=== PATIENT | female | born 1935 | race Caucasian/White ===

== ENCOUNTER 2019-01-24 12:27 | Inpatient (IN) | payer MEDICARE ==
[2019-01-24 13:14] LABS: Bacteria/HPF None Seen HPF (None Seen); Hyaline Casts/LPF 0-3 HYALINE CAST LPF (0-3 Hyaline); RBC/HPF 0-3 HPF (0-3); Squamous Epithelial 0-3 HPF (0-3); WBC/HPF 0-3 HPF (0-3)
[2019-01-24 13:15] LABS: Bilirubin Negative (Negative); Blood, Urine Negative (Negative); Clarity CLEAR (Clear); Glucose, Urine (Dipstick) Negative (Negative); Leukocyte Trace (Negative); Nitrite Negative (Negative); Protein, Urine (Dipstick) Negative (Neg-Trace); Specific Gravity, Urine 1.011 (1.002-1.036); Urobilinogen 0.2 mg/dL (0.2-1.0)
--- NOTE | 2019-01-24 14:24 | RAD ---
RADIOGRAPH LEFT WRIST 3 VIEWS: Date: 01/24/19 HISTORY: 84-year-old female with acute traumatic left wrist pain due to fall. FINDINGS: Severe DJD at first [facility] and at [facility]. No fracture identified. If there is snuffbox tenderness t hat suggests an occult scaphoid fracture, then the general recommendation is immobilization and follo w-up imaging in 5-10 days. Diffuse osteopenia. No subluxation or dislocation. IMPRESSION: 1. No acute fracture identified. 2. Severe osteoarthrosis of the first carpometacarpal joint and triscaphe region. POS: [facility]
--- NOTE | 2019-01-24 14:25 | RAD ---
3 VIEWS LEFT HAND: Date: 01/24/19 HISTORY: Left hand injury after mechanical fall. FINDINGS: There is diffuse osteopenia. There is osteoarthritis involving the interphalangeal joints, as well as metacarpal joints of the first through third digits with prominent osteophytes and subchondral scler osis involving the metacarpophalangeal joint of the thumb. Osteoarthritis also seen involving the car pometacarpal joint and greater multangular joint. No fracture or dislocation is seen. No other osseou s abnormality. IMPRESSION: 1. Osteoarthritis and osteopenia left hand. 2. No acute osseous abnormality. POS: [facility]
[2019-01-24] MEDS ORDERED: Ondansetron PF 4 MG/2 ML Vial IVP PRN ×2 (14:26→16:00)
[2019-01-24] MEDS ORDERED: Ondansetron ODT 4 MG TAB PO PRN (14:26)
[2019-01-24] MEDS ORDERED: Bisacodyl 10 MG SUPP PR PRN (14:26)
[2019-01-24] MEDS ORDERED: Cepastat Lozenges 1 LOZ PO PRN (14:26)
[2019-01-24] MEDS ORDERED: Acetaminophen 325 MG TAB PO PRN (14:26)
[2019-01-24] MEDS ORDERED: Fentanyl 100 MCG/2 ML VIAL SLOW IVP PRN (14:26)
[2019-01-24] MEDS ORDERED: traMADol HCl 50 MG TAB PO PRN ×4 (14:26→16:00)
[2019-01-24] MEDS ORDERED: Milk Of Magnesia 30 ML UDCUP PO PRN (14:26)
[2019-01-24] MEDS ORDERED: Fleet Enema 133 ML BOT PR PRN (14:26)
[2019-01-24] MEDS ORDERED: Lidocaine 1.5% w/Epi 1:200K 30 ML VIAL (Epid Use) ONE (14:48)
[2019-01-24] MEDS ORDERED: Fentanyl 100 MCG/2 ML VIAL ONE ×3 (14:48→15:34)
[2019-01-24] MEDS ORDERED: Midazolam HCl 2 mg/2 ml Vial ONE (14:48)
[2019-01-24] MEDS ORDERED: Ketorolac Tromethamine 30 MG/ML VIAL ONE (14:51)
[2019-01-24] MEDS ORDERED: Metoclopramide HCl 10 MG/2 ML VIAL ONE (14:51)
[2019-01-24] MEDS ORDERED: PROPOFOL 200 MG/20 ML VIAL ONE (14:51)
[2019-01-24] MEDS ORDERED: Ondansetron PF 4 MG/2 ML Vial ONE (14:51)
[2019-01-24] MEDS ORDERED: ePHEDrine 50 MG/ML VIAL ONE (14:51)
[2019-01-24] MEDS ORDERED: Glycopyrrolate 0.2 MG/ML 5 ML SYRINGE ONE (14:51)
[2019-01-24] MEDS ORDERED: Rocuronium Bromide 10 MG/ML (10ML VIAL) ONE (14:51)
[2019-01-24] MEDS ORDERED: PHENYLEPHRINE-NS 100 MCG/ML 10 ML SYRINGE ONE (14:51)
[2019-01-24] MEDS ORDERED: Ketamine 50 MG/ML (10ML VIAL) ONE (15:19)
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
[2019-01-24] MEDS ORDERED: Naloxone HCl 0.4 mg/ml Vial IVP PRN (16:00)
[2019-01-24] MEDS ORDERED: diphenhydrAMINE 50 MG/ML VIAL IM PRN (16:00)
[2019-01-24] MEDS ORDERED: Promethazine HCl 25 MG SUPP PR PRN (16:00)
[2019-01-24] MEDS ORDERED: Hydrocerin (Eucerin) Cream 120 gm Jar TOP PRN (16:00)
[2019-01-24] MEDS ORDERED: HYDROcodone/Acetaminophen 5/325 mg Tablet PO PRN ×2 (16:00)
[2019-01-24] MEDS ORDERED: Bupivacaine 0.25% 10 ML VIAL EPIDURAL PRN (16:00)
[2019-01-24] MEDS ORDERED: Promethazine HCl 25 MG/ML VIAL IM PRN (16:00)
[2019-01-24] MEDS ORDERED: Ketorolac Tromethamine 30 MG/ML VIAL IVP PRN (16:00)
[2019-01-24] MEDS ORDERED: Zolpidem Tartrate 5 MG TAB PO PRN (16:00)
[2019-01-24] MEDS ORDERED: diphenhydrAMINE 50 MG/ML VIAL IVP PRN (16:00)
[2019-01-24] MEDS ORDERED: diphenhydrAMINE 25 MG CAP PO PRN (16:00)
[2019-01-24] MEDS ORDERED: Naloxone HCl 0.4 mg/ml Vial IV PRN (16:00)
[2019-01-24] MEDS ORDERED: Ropivacaine 0.2% HCl/PF 20 ML ONE (16:12)
[2019-01-24] MEDS ORDERED: Fentanyl 5 mcg/Bup 0.075% Cadd 100 ML EPIDURAL ONE (17:41)
[2019-01-24] MEDS ORDERED: Ondansetron HCl/PF 4 MG/2 ML Vial IVP PRN (17:42)
[2019-01-24] MEDS ORDERED: Tranexamic Acid 1,000 MG in Sodium Chloride 0.9% 100 ML IVPB SCH (17:45)
--- NOTE | 2019-01-24 18:12 | OP ---
DATE OF PROCEDURE: 01/24/2019 PREOPERATIVE DIAGNOSIS: Left hip femoral neck fracture. POSTOPERATIVE DIAGNOSIS: Left hip femoral neck fracture. OPERATIVE PROCEDURE: Left hip press-fit monopolar hemiarthroplasty. SURGEON: Brandon Dietrich MD. TANK CHARGER: Phillip Kay PA-C. ANESTHESIA: General via endotracheal tube augmented with indwelling epidural. COMPONENTS USED: [employer] Accolade press-fit hip stem 4.5 with a 49 mm outer diameter Unitrax monopolar -5 neck length, hemispherical femoral head. ESTIMATED BLOOD LOSS: 150. FINDINGS: Left femoral neck fracture as described on plain radiograph. DRAINS: None. SPECIMENS: None. COMPLICATIONS: None. COUNTS: Correct. INDICATION FOR SURGERY: Hillary is an 84-year-old white female, who fell earlier this morning while walking with her dog, landing on her left hip. She had immediate onset of pain. She was transferred to [facility] via EMS. Plain radiographs demonstrated displaced varus angulated femoral neck fracture. She has elected to proceed with left hip hemiarthroplasty as definitive treatment of this problem. PROCEDURE IN DETAIL: After informed consent was obtained in the preoperative holding area, the patient received preoperative antibiotics, was taken to the operative suite, and positioned appropriately on the operating table in the lateral decubitus position. The hip was then prepped and draped in usual sterile fashion. Prior to incision, a time-out was called and all members of the surgical team agreed upon site, surgeon, and patient. Once this was completed, an incision was made using a lateral approach 2 fingerbreadths above the tip of the trochanter and 2 fingerbreadths below the flare by palpation. The subcutaneous layer was opened with Bovie electrocautery and the IT band was encountered. This was identified and a camargo elevator was used to remove the adipose tissue from it. Once it was cleaned, Bovie and scissors were used to incise the IT band, exposing the lateral aspect of the trochanter and the abductor muscles. The abductor muscles were then reflected using Bovie electrocautery. The gluteus medius was also then reflected anteriorly and Charnley retractor was placed to hold this open. An anterior capsulotomy was performed, identifying the fracture hematoma at that time. Once the capsulotomy was completed, the neck cut was then made using the oscillating saw. Once the napkin ring of bone was removed using rongeur Leksell, the femoral head was then removed using a corkscrew combination with Hohmann retractors. The appropriate size was then chosen and this was trialed and attention was then turned to femoral preparation. The cookie cutter was used, followed by intramedullary reamers and sequential broaching up to the appropriate size of press-fit stem. Once this was completed, we had good calcar fit and 1 fingerbreadth above the top of the lesser trochanter. We then malleted in the appropriate sized femoral prosthesis using a good strong press fit. Happy with our fit, we went ahead and trialed up to the appropriate neck length using shuck, internal and external rotation, and other maneuvers to identify good solid hip fit and finish, and without any dislocation at greater than 50-60 degrees of internal rotation with the hip flexed to 90 degrees. Shuck was negative as well. We then selected the appropriate neck length and endoprosthesis malleted firmly into the Valladares taper. A reduction maneuver was then performed and we copiously irrigated the entire wound with normal saline. Again, we ran the hip through hip internal and external rotation flexed at 90 degrees and shuck being negative. After copious irrigation of 3 L of normal saline, the abductors were then reapproximated and stitched down using #2 Vicryl. The IT band was approximated with #2 Vicryl and closed with a running #2 Quill polypropylene stitch. Subcutaneous layer was closed with a running 0 Quill stitch and skin closure was accomplished with 3-0 Monocryl Quill stitch and Dermabond skin cement. All counts were correct. A sterile dressing was applied and the procedure was terminated without any complications. The airway was removed in the operative suite and the patient was taken to recovery room in stable condition. Job ID: [id number]
[2019-01-24] MEDS ORDERED: D5 1/2 NS w/20 mEq KCL 1,000 ML ONE (18:32)
[2019-01-24] MEDS ORDERED: hydrALAZINE 20 MG/ML VIAL SLOW IVP PRN (18:36)
[2019-01-24] MEDS ORDERED: Morphine 4 MG/ML VIAL SLOW IVP PRN (18:36)
[2019-01-24] MEDS ORDERED: Dextrose 50% Abboject 50 ML SYRINGE SLOW IVP PRN (18:36)
[2019-01-24] MEDS ORDERED: Dextrose 5% in Water 1,000 ML IV PRN (18:36)
[2019-01-24] MEDS ORDERED: HumaLOG 300 UNITS/3 ML VIAL SC PRN (18:36)
[2019-01-24] MEDS ORDERED: Acetaminophen 1,000 MG in Premix Bag 1 BAG IVPB SCH ×2 (18:45→23:59)
--- NOTE | 2019-01-24 19:37 | RAD ---
TWO VIEWS LEFT HIP 01/24/19 INDICATION: Postop. COMPARISON: None. FINDINGS: There is a left hip endoprosthesis that projects in the expected position. there is scattered periart icular soft tissue gas consistent with the patient's recent postop state. No definite radiographic e vidence of complications present. there are healed fracture deformities involving the inferior pubic rami bilaterally. IMPRESSION: Left hip endoprosthesis. POS: [facility]
[2019-01-24] MEDS: D5 1/2 NS w/20 mEq KCL 1,000 ML IV SCH (21:13)
[2019-01-24] MEDS: Ibuprofen 800 MG TAB PO SCH (21:15)
[2019-01-24] MEDS: Ferrous Gluconate 324 MG TAB PO SCH (21:15)
[2019-01-24] MEDS: Famotidine 20 MG TAB PO SCH (21:15)
[2019-01-24] MEDS: Senokot S 8.6-50 MG TAB PO SCH (21:15)
[2019-01-24] MEDS: CEFAZOLIN 2 GM in Premix Bag 1 BAG IVPB SCH (21:16)
[2019-01-24] MEDS: Acetaminophen 1,000 MG in Premix Bag 1 BAG IVPB SCH (21:16)
--- NOTE | 2019-01-24 21:18 | HP ---
HISTORY OF PRESENT ILLNESS: This is a very pleasant 84-year-old woman who fell at home today while walking her dog. She denies any loss of consciousness, was in good health at the time of the fall. PAST MEDICAL HISTORY: Positive for hypertension. ALLERGIES: SULFA AND TETRACYCLINE. SOCIAL HISTORY: Does not smoke or drink. She lives alone. She does have family fairly nearby. She is an independent ambulator. Does not use a cane or crutch. PAST FAMILY MEDICAL HISTORY: Positive for hypertension and high cholesterol. PHYSICAL EXAMINATION: GENERAL: Shows a pleasant woman, who is in no distress. HEENT: Normocephalic and atraumatic. LUNGS: Clear. HEART: Regular. EXTREMITIES: She has little bit of tenderness over the left wrist. She has tenderness over the left hip. External rotation deformity of the left hip with shortening. She has intact motor and sensory function distally. RADIOGRAPH DATA: Show osteoarthritis of the left carpus and a displaced femoral neck fracture on the left hip. PLAN: Plan is for hemiarthroplasty. She understands the risk of infection, blood clot, transfusion, , dislocation. She elected to proceed with surgery. Job ID: [id number]
[2019-01-25 00:16] VITALS: BMI 23.8
[2019-01-25] MEDS: Acetaminophen 1,000 MG in Premix Bag 1 BAG IVPB SCH ×3 (02:55→14:42)
[2019-01-25] MEDS: D5 1/2 NS w/20 mEq KCL 1,000 ML IV SCH (04:56)
[2019-01-25] MEDS: Ibuprofen 800 MG TAB PO SCH ×3 (05:53→21:07)
[2019-01-25] MEDS: CEFAZOLIN 2 GM in Premix Bag 1 BAG IVPB SCH (05:53)
[2019-01-25 06:12] LABS: Hemoglobin 11.8 g/dL (12.0-16.0); Mean Corpuscular HGB CONC 31.3 g/dL (32.0-36.0); Mean Corpuscular Hemoglobin 27.9 pg (27.0-31.0); Mean Corpuscular Volume 89.2 fL (78.0-98.0); Mean Platelet Volume 8.5 fL (7.4-10.4); Platelet Count 178 thou/uL (130-400); RBC Distribution Width 13.8 % (11.5-14.5); Red Blood Cell (RBC) Count 4.23 mill/uL (4.20-5.40); White Blood Cell (WBC) Count 8.5 thou/uL (4.8-10.8)
[2019-01-25 06:32] LABS: Phosphorus 3.1 mg/dL (2.3-4.7)
[2019-01-25 06:35] LABS: Anion Gap 10 mmol/L (10-20); BUN (Urea Nitrogen) 12 mg/dL (9.8-20.1); Calc. Creatinine Clearance 67 mL/min (70-130); Calcium 8.2 mg/dL (7.8-10.44); Carbon Dioxide 24 mmol/L (23-31); Chloride 102 mmol/L (98-107); Estimated GFR-MDRD Greater than 90; Glucose 106 mg/dL (83-110); Magnesium 1.6 mg/dL (1.6-2.6); Potassium 4.3 mmol/L (3.5-5.1); Sodium 132 mmol/L (136-145)
--- NOTE | 2019-01-25 08:20 | PRG ---
DATE OF SERVICE: 01/25/2019 SUBJECTIVE: Hillary is an 84-year-old white female, who is postop day 1 from left hip monopolar hemiarthroplasty. She is doing very well. She has no complaints of pain. She slept very well last night. OBJECTIVE DATA: VITAL SIGNS: Temperature 98.3; pulse 85; respiratory rate 16, unlabored; and blood pressure is 114/66 and unlabored. GENERAL: She is alert and oriented to person, place, time, and situation. Grossly nonfocal. MUSCULOSKELETAL: Visual inspection of the left hip incision demonstrates no strike through, and there is no shortening or malrotation. LABORATORY DATA: Hemoglobin and hematocrit are 11.8 and 37.7 respectively. IMPRESSION: An 84-year-old female, postop day 1, left hip hemiarthroplasty secondary to femoral neck fracture. PLAN: Continue current care. Consult Physical Therapy, out of bed today, weightbearing as tolerated. Recheck tomorrow. Need to discuss placement versus discharge to home. Job ID: [id number]
[2019-01-25] MEDS: Senokot S 8.6-50 MG TAB PO SCH ×2 (08:28→20:41)
[2019-01-25] MEDS: Ferrous Gluconate 324 MG TAB PO SCH ×2 (08:28→20:41)
[2019-01-25] MEDS: Multivitamin W/ Minerals 1 TAB PO SCH (08:28)
[2019-01-25] MEDS: Famotidine 20 MG TAB PO SCH ×2 (08:28→20:41)
[2019-01-25] MEDS: Polyethylene Glycol 3350 17 GM Packet PO SCH (08:29)
[2019-01-25] MEDS ORDERED: Enoxaparin Sodium 30 MG/0.3 ML SYRINGE SC SCH (09:00)
[2019-01-25] MEDS: Fentanyl 5 mcg/Bup 0.075% Cadd 100 ML EPIDURAL SCH (09:30)
--- NOTE | 2019-01-25 15:53 | PRG ---
DATE OF SERVICE: 01/25/2019 SUBJECTIVE: This is an 84-year-old female, status post mechanical fall with left femoral neck fracture. The patient is postop day #1 left hip monopolar hemiarthroplasty. The patient had no overnight events. The patient continues to have good pain control with epidural. The patient did participate with Physical Therapy. The patient with good appetite. No complaints of nausea or vomiting. OBJECTIVE: VITAL SIGNS: Blood pressure 122/69, temperature 98.2, pulse 82, respirations 16, and 94% on room air SpO2. GENERAL: The patient is awake and alert, in no distress. RESPIRATORY: Respirations even and nonlabored, no distress. CARDIOVASCULAR: Regular rate and rhythm. No pedal edema. ABDOMEN: Soft, nontender, and nondistended. EXTREMITIES: Moves all extremities. 2+ distal pulses x4. Left hip dressing clean, dry, and intact. NEUROVASCULAR: No focal deficits. LABORATORY DATA: WBC 8.5, RBC 4.23, hemoglobin 11.8, hematocrit 37.7, platelets 178. Sodium 132, potassium 4.3, chloride 102, CO2 of 24, BUN 12, creatinine 0.62, estimated GFR 90, glucose 106, calcium 8.2, phosphorus 3.1, and magnesium 1.6. IMPRESSION: 1. Ground level fall, status post left femoral neck fracture. 2. Postop day #1, left hip hemiarthroplasty. 3. Acute traumatic pain. 4. History of hypertension, gastroesophageal reflux disease, diabetes, and osteoporosis. PLAN: Continue epidural for pain. We will stop IV fluids. Plan for epidural to discontinue tomorrow. We will start the patient on p.o. pain regimen. Continue physical therapy and occupational therapy. Pending placement to inpatient rehab in [place]. The patient was examined with Dr. Velazquez during morning rounds. Job ID: [id number]
[2019-01-25] MEDS: Calcium Carbonate + Vit D 1 TAB PO SCH (20:41)
[2019-01-25] MEDS: Carvedilol 6.25 MG TAB PO SCH (20:41)
[2019-01-26] MEDS ORDERED: Furosemide 40 MG/4 ML VIAL ONE (03:32)
[2019-01-26] MEDS: Fentanyl 5 mcg/Bup 0.075% Cadd 100 ML EPIDURAL SCH (03:35)
[2019-01-26] MEDS: Ibuprofen 800 MG TAB PO SCH ×3 (06:50→21:23)
[2019-01-26 07:00] LABS: Hemoglobin 11.9 g/dL (12.0-16.0); Mean Corpuscular HGB CONC 30.9 g/dL (32.0-36.0); Mean Corpuscular Hemoglobin 27.9 pg (27.0-31.0); Mean Corpuscular Volume 90.1 fL (78.0-98.0); Mean Platelet Volume 8.6 fL (7.4-10.4); Platelet Count 161 thou/uL (130-400); RBC Distribution Width 13.8 % (11.5-14.5); Red Blood Cell (RBC) Count 4.28 mill/uL (4.20-5.40); White Blood Cell (WBC) Count 10.8 thou/uL (4.8-10.8)
[2019-01-26 07:14] LABS: Anion Gap 9 mmol/L (10-20); BUN (Urea Nitrogen) 9 mg/dL (9.8-20.1); Calc. Creatinine Clearance 71 mL/min (70-130); Calcium 8.6 mg/dL (7.8-10.44); Carbon Dioxide 23 mmol/L (23-31); Chloride 100 mmol/L (98-107); Estimated GFR-MDRD Greater than 90; Glucose 117 mg/dL (83-110); Potassium 4.1 mmol/L (3.5-5.1); Sodium 128 mmol/L (136-145)
[2019-01-26] MEDS: Polyethylene Glycol 3350 17 GM Packet PO SCH (08:48)
[2019-01-26] MEDS: Famotidine 20 MG TAB PO SCH ×2 (08:48→20:29)
[2019-01-26] MEDS: Calcium Carbonate + Vit D 1 TAB PO SCH ×2 (08:48→20:29)
[2019-01-26] MEDS: Senokot S 8.6-50 MG TAB PO SCH ×2 (08:48→20:28)
[2019-01-26] MEDS: Carvedilol 6.25 MG TAB PO SCH ×2 (08:49→20:29)
[2019-01-26] MEDS: Multivitamin W/ Minerals 1 TAB PO SCH (08:49)
[2019-01-26] MEDS: Amlodipine 10 MG TAB PO SCH (08:49)
[2019-01-26] MEDS: Ferrous Gluconate 324 MG TAB PO SCH ×2 (08:49→20:29)
[2019-01-26] MEDS ORDERED: Hydrochlorothiazide 25 MG TAB PO SCH (09:00)
--- NOTE | 2019-01-26 12:07 | PRG ---
DATE OF SERVICE: 01/26/2019 SUBJECTIVE: Hillary is postop day 2 from left hip femoral neck fracture treated with press-fit monopolar hemiarthroplasty. She is doing relatively well. She has been up walking distances greater than 120 to 130 feet. She is doing very well. She is quite spry. OBJECTIVE: GENERAL: She is alert, oriented to person, place, time, situation, grossly nonfocal and appropriate and spry with examiner. VITAL SIGNS: Temperature 99.2; pulse 97; respiratory rate 16, unlabored; and blood pressure 160/76. MUSCULOSKELETAL: She is sitting up, in-conversive. Her left hip incision is clean. No strike through. She is neurovascularly intact in both lower extremities. There is no malrotation or shortening of the extremity. IMPRESSION: An 84-year-old female, postop day 2, left hip hemiarthroplasty, doing very well. Hemoglobin and hematocrit 11 and 38. PLAN: Continue current care. She will probably transfer to [facility]. Job ID: [id number]
[2019-01-26] MEDS ORDERED: traMADol HCl 50 MG TAB PO SCH (15:45)
--- NOTE | 2019-01-26 16:20 | PRG ---
DATE OF SERVICE: 01/26/2019 SUBJECTIVE: This is an 84-year-old woman status post mechanical fall with left femoral neck fracture. She is postop day #2, left hip monopolar hemiarthroplasty. The patient had no overnight events. The patient continues to have good pain control with epidural in place. The patient has no complaints of nausea or vomiting and has a good appetite. The patient did walk 150 feet today with physical therapy. The patient did also report having a bowel movement this morning. The patient is awake, alert, sitting up in the chair after physical therapy. Reports moderate pain with walking. OBJECTIVE: VITAL SIGNS: Blood pressure 160/76, SpO2 of 94% on room air, temperature 99.2, pulse 97, respirations 16. GENERAL: The patient is awake, alert, sitting up in the chair, in no distress. RESPIRATORY: Respirations even and nonlabored, no distress. CARDIOVASCULAR: Regular rate and rhythm, no pedal edema. ABDOMEN: Soft, nontender, nondistended. EXTREMITIES: Moves all extremities. 2+ distal pulses x4. Left hip dressing clean, dry, and intact. NEUROVASCULAR: No focal deficits. LABORATORY DATA: WBC 10.8, RBC 4.28, hemoglobin 11.9, hematocrit 38.5, platelets 161. Sodium 128, potassium 4.1, BUN 9, creatinine 0.58, estimated GFR greater than 90, glucose 117, calcium 8.6. DIAGNOSTICS: There is no diagnostics to review today. IMPRESSION: 1. Ground level fall status post left femoral neck fracture. 2. Postoperative day #2 left hip hemiarthroplasty. 3. Acute traumatic pain. 4. Hyponatremia. 5. History of hypertension, gastroesophageal reflux disease, diabetes mellitus, osteoporosis. PLAN: We will place the patient on a p.o. scheduled pain regimen as the patient's epidural has been discontinued this morning. We will discontinue the patient's Golbderg catheter. We will continue physical and occupational therapy. We will place the patient on Ensure lively with daily meals. We will place the patient on a free water restriction for her hyponatremia. The patient has pending placement to inpatient rehab in [place]. The patient was examined with Dr. Velazquez during morning rounds. Job ID: [id number]
[2019-01-26] MEDS: traMADol HCl 50 MG TAB PO SCH ×2 (17:48→23:02)
[2019-01-26] MEDS: metFORMIN 500 MG TAB PO SCH (17:49)
[2019-01-26] MEDS: Vit A,C & E/Lutein/Minerals Tablet PO SCH (20:28)
[2019-01-26] MEDS: Acetaminophen 325 MG TAB PO SCH (20:29)
[2019-01-26] MEDS: Enoxaparin Sodium 30 MG/0.3 ML SYRINGE SC SCH (20:30)
[2019-01-26] MEDS ORDERED: Amoxicillin/Potassium Clav 875 MG TAB PO SCH (21:00)
[2019-01-27] MEDS: Acetaminophen 325 MG TAB PO SCH ×4 (02:57→20:23)
[2019-01-27 05:00] LABS: Hemoglobin 10.7 g/dL (12.0-16.0); Mean Corpuscular Hemoglobin 27.6 pg (27.0-31.0); Mean Corpuscular Volume 89.3 fL (78.0-98.0); Mean Platelet Volume 9.3 fL (7.4-10.4); Platelet Count 167 thou/uL (130-400); RBC Distribution Width 13.6 % (11.5-14.5); Red Blood Cell (RBC) Count 3.89 mill/uL (4.20-5.40); White Blood Cell (WBC) Count 8.8 thou/uL (4.8-10.8)
[2019-01-27 05:06] LABS: Anion Gap 8 mmol/L (10-20); BUN (Urea Nitrogen) 13 mg/dL (9.8-20.1); Calc. Creatinine Clearance 71 mL/min (70-130); Calcium 8.7 mg/dL (7.8-10.44); Carbon Dioxide 28 mmol/L (23-31); Chloride 99 mmol/L (98-107); Estimated GFR-MDRD Greater than 90; Glucose 95 mg/dL (83-110); Potassium 3.9 mmol/L (3.5-5.1); Sodium 131 mmol/L (136-145)
[2019-01-27] MEDS: traMADol HCl 50 MG TAB PO SCH ×3 (05:19→17:42)
[2019-01-27] MEDS: Ibuprofen 800 MG TAB PO SCH ×3 (05:20→21:16)
[2019-01-27] MEDS: Calcium Carbonate + Vit D 1 TAB PO SCH ×2 (08:42→20:23)
[2019-01-27] MEDS: Vit A,C & E/Lutein/Minerals Tablet PO SCH ×2 (08:42→20:23)
[2019-01-27] MEDS: Carvedilol 6.25 MG TAB PO SCH ×2 (08:42→20:23)
[2019-01-27] MEDS: Amlodipine 10 MG TAB PO SCH (08:42)
[2019-01-27] MEDS: Polyethylene Glycol 3350 17 GM Packet PO SCH (08:43)
[2019-01-27] MEDS: Famotidine 20 MG TAB PO SCH ×2 (08:43→20:23)
[2019-01-27] MEDS: Senokot S 8.6-50 MG TAB PO SCH ×2 (08:43→20:22)
[2019-01-27] MEDS: Ferrous Gluconate 324 MG TAB PO SCH ×2 (08:43→20:23)
[2019-01-27] MEDS: metFORMIN 500 MG TAB PO SCH ×2 (08:43→17:42)
[2019-01-27] MEDS: Multivitamin W/ Minerals 1 TAB PO SCH (08:43)
--- NOTE | 2019-01-27 15:58 | PRG ---
DATE OF SERVICE: 01/27/2019 SUBJECTIVE: This is an 84-year-old woman status post mechanical fall with left femoral neck fracture. She is postop day #3, left hip monopolar hemiarthroplasty. The patient had no overnight events. The patient continues to have good pain control. The patient denies any nausea and vomiting, and continues to have a good appetite. The patient continues to walk with Physical therapy. OBJECTIVE: VITAL SIGNS: Temperature 98.1, pulse 86, respirations 14, SpO2 of 94% on room air, blood pressure 166/82. GENERAL: The patient is awake and alert, sitting up in the chair. RESPIRATORY: Respirations even, unlabored and no distress. CARDIOVASCULAR: Regular rate and rhythm. No pedal edema. ABDOMEN: Soft, nontender, nondistended. EXTREMITIES: Moves all extremities. 2+ distal pulses. Left hip dressing is clean, dry, and intact. NEUROVASCULAR: There are no focal deficits. LABORATORY DATA: WBC 8.8, RBC 3.89, hemoglobin 10.7, hematocrit 34.4, platelets 167. Sodium 131, BUN 13, creatinine 0.58. Estimated GFR greater than 90, glucose 95, serum osmolality 275, calcium 8.7. DIAGNOSTICS: There are no diagnostics to review today. IMPRESSION: 1. Status post ground level fall with left femoral neck fracture. 2. Postop day #2, left hip hemiarthroplasty. 3. Acute traumatic pain. 4. Hyponatremia. 5. History of hypertension, gastroesophageal reflux disease, diabetes mellitus, osteoporosis. PLAN: We will continue the patient's pain regimen. We will discontinue the patient's hydrochlorothiazide for a couple of days as the patient continues to be hyponatremic. We will continue Physical and Occupational therapy. We will also continue the patient's Ensure lively with daily meals. The patient is pending placement for skilled/rehab in [place]. The patient was examined with Dr. Waldron this morning during morning rounds. Job ID: [id number]
[2019-01-27] MEDS: Enoxaparin Sodium 30 MG/0.3 ML SYRINGE SC SCH (20:22)
[2019-01-28] MEDS: traMADol HCl 50 MG TAB PO SCH ×2 (01:40→05:06)
[2019-01-28] MEDS: Acetaminophen 325 MG TAB PO SCH ×2 (03:12→09:28)
[2019-01-28] MEDS: Ibuprofen 800 MG TAB PO SCH (05:06)
[2019-01-28 08:06] LABS: #Eosinphils 0.2 thou/uL (0.0-0.7); #Lymphocytes 1.3 thou/uL (1.20-3.40); #Monocytes 0.9 thou/uL (0.11-0.59); #Neutrophils 4.4 thou/uL (1.40-6.50); %Basophils 0.5 % (0.0-1.0); %Eosinophils 2.8 % (0.0-10.0); %Lymphocytes 18.9 % (21.0-51.0); %Monocytes 12.6 % (0.0-10.0); %Neutrophils 65.2 % (42.0-75.0); Hemoglobin 10.9 g/dL (12.0-16.0); Mean Corpuscular HGB CONC 31.6 g/dL (32.0-36.0); Mean Corpuscular Hemoglobin 27.5 pg (27.0-31.0); Mean Corpuscular Volume 86.9 fL (78.0-98.0); Mean Platelet Volume 8.2 fL (7.4-10.4); Platelet Count 240 thou/uL (130-400); RBC Distribution Width 13.6 % (11.5-14.5); Red Blood Cell (RBC) Count 3.95 mill/uL (4.20-5.40); White Blood Cell (WBC) Count 6.8 thou/uL (4.8-10.8)
[2019-01-28 08:22] LABS: Anion Gap 8 mmol/L (10-20); BUN (Urea Nitrogen) 14 mg/dL (9.8-20.1); Calc. Creatinine Clearance 71 mL/min (70-130); Carbon Dioxide 29 mmol/L (23-31); Chloride 99 mmol/L (98-107); Estimated GFR-MDRD Greater than 90; Glucose 91 mg/dL (83-110); Magnesium 1.6 mg/dL (1.6-2.6); Phosphorus 2.4 mg/dL (2.3-4.7); Potassium 4.2 mmol/L (3.5-5.1); Sodium 132 mmol/L (136-145)
[2019-01-28] MEDS ORDERED: Magnesium 2 GM/50 ML 2 GM in Premix Bag 1 BAG IVPB SCH (08:30)
[2019-01-28] MEDS: Famotidine 20 MG TAB PO SCH (09:25)
[2019-01-28] MEDS: Polyethylene Glycol 3350 17 GM Packet PO SCH (09:25)
[2019-01-28] MEDS: Amlodipine 10 MG TAB PO SCH (09:25)
[2019-01-28] MEDS: Carvedilol 6.25 MG TAB PO SCH (09:25)
[2019-01-28] MEDS: Calcium Carbonate + Vit D 1 TAB PO SCH (09:25)
[2019-01-28] MEDS: Multivitamin W/ Minerals 1 TAB PO SCH (09:26)
[2019-01-28] MEDS: Ferrous Gluconate 324 MG TAB PO SCH (09:26)
[2019-01-28] MEDS: Vit A,C & E/Lutein/Minerals Tablet PO SCH (09:26)
[2019-01-28] MEDS: Senokot S 8.6-50 MG TAB PO SCH (09:26)
[2019-01-28] MEDS: metFORMIN 500 MG TAB PO SCH (09:26)
[2019-01-28 11:10] VITALS: BP 118/68; TEMP 98.7
--- NOTE | 2019-01-29 04:47 | DIS ---
DATE OF ADMISSION: 01/24/2019 DATE OF DISCHARGE: 01/28/2019 ADMISSION DIAGNOSES: Mechanical fall from standing and left femoral neck fracture. DISCHARGE DIAGNOSES: Mechanical fall from standing and left femoral neck fracture. CONSULTING PHYSICIAN: Dr. Dietrich. PROCEDURE: Left hip monopolar hemiarthroplasty on January [address] Dietrich. HOSPITAL COURSE: Ms. Almazan is an 84-year-old female, who presented to the emergency department after mechanical fall from standing. She reported she was walking her dog when her dog suddenly jerked her forward. She let go of the leash and fell onto her left side, injuring her left leg and wrist. On evaluation in the emergency department, she was found to have a left femoral neck fracture, left wrist showed no radiographic signs of injury. On the , the patient was taken to the OR by Dr. Dietrich and received a left hip monopolar hemiarthroplasty. Postoperatively, the patient worked with Physical and Occupational Therapy. She was started on all of her home medications as they were indicated. At time of discharge, she was tolerating a regular diet, pain was well controlled, she was working on physical therapy, she was voiding but had not had a bowel movement. DISCHARGE DISPOSITION: Swing bed at a residential facility. DISCHARGE CONDITION: Satisfactory. PHYSICAL EXAMINATION: GENERAL: An elderly female, sitting up in bed with no signs of acute distress. PULMONARY: Equal chest rise and fall. Equal breath sounds bilaterally. No significant pulmonary distress. CARDIAC: Regular rate and rhythm. No murmurs, gallops, or rubs. GASTROINTESTINAL: Soft, nontender, nondistended. EXTREMITIES: No significant swelling noted. 2+ pulses in all extremities. Gross motor and sensation intact in all extremities. DISCHARGE INSTRUCTIONS: The patient was discharged to a swing bed at a residential facility. Activity as tolerated with hip precautions. She can have regular diet with no restrictions. She is to work with PT and OT. Use an incentive spirometer and walker. DISCHARGE MEDICATIONS: Include: 1. Tylenol. 2. Amlodipine. 3. Calcium with D. 4. Carvedilol. 5. Lovenox. 6. Ferrous gluconate. 7. Ibuprofen. 8. Metformin. 9. Eucerin. 10. Multivitamins. 11. MiraLAX. 12. Senokot. 13. Tramadol. FOLLOWUP: The patient is to follow up with Dr. Dietrich in 2 to 3 weeks. This is merely a summary of the patient's hospitalization. For full details, please see her medical record in its entirety. Job ID: [id number]
== END 2019-01-28 13:51 | DRG 470 ==
LOC: ERS 12:27 → SDC/OP 14:54 → SJJU 18:43
PROVIDERS: ADMIT Surgery; ATTEND Surgery
PROC: 0SRS0JA Replacement of Left Hip Joint, Femoral Surface with Synthetic Substitute, Uncemented, Open Approach (ICD-10-PCS; principal; 2019-01-24)
DX: S72.002A Fracture of unspecified part of neck of left femur, initial encounter for closed fracture (principal); E87.1 Hypo-osmolality and hyponatremia; W18.30XA Fall on same level, unspecified, initial encounter; Y93.K1 Activity, walking an animal; I10 Essential (primary) hypertension; M19.032 Primary osteoarthritis, left wrist; K21.9 Gastro-esophageal reflux disease without esophagitis; E11.9 Type 2 diabetes mellitus without complications; M81.0 Age-related osteoporosis without current pathological fracture; Z79.899 Other long term (current) drug therapy; Z88.2 Allergy status to sulfonamides; Z88.8 Allergy status to other drugs, medicaments and biological substances; Z79.84 Long term (current) use of oral hypoglycemic drugs; Z85.818 Personal history of malignant neoplasm of other sites of lip, oral cavity, and pharynx
CPT/HCPCS: 36415; 36416; 80048; 81003; 81015; 83735; 83930; 84100; 85025; 85027; 86850; 86900; 86901; 93005; 94760; 96374; G0390; J0131; J1650; J1885; J1940; J2250; J2405; J2704; J2765; J2795; J3010; J3475; J3490

== ENCOUNTER 2022-07-01 11:15 | Emergency (ER) | payer MEDICARE ==
[~2022-07-01 11:15] MED LIST: Iopamidol-370 76% 500 ML 1 ML ONE
[2022-07-01] MEDS ORDERED: Fleet Enema 133 ML BOT FS SCH (12:45)
[2022-07-01 13:10] LABS: #Basophils 0.1 thou/uL (0.0-0.2); #Eosinphils 0.1 thou/uL (0.0-0.7); #Monocytes 0.7 thou/uL (0.11-0.59); #Neutrophils 5.2 thou/uL (1.40-6.50); %Basophils 1.4 % (0.0-1.0); %Eosinophils 1.3 % (0.0-10.0); %Lymphocytes 24.8 % (21.0-51.0); %Monocytes 8.2 % (0.0-10.0); %Neutrophils 64.3 % (42.0-75.0); Hemoglobin 13.3 g/dL (12.0-16.0); Mean Corpuscular HGB CONC 31.4 g/dL (32.0-36.0); Mean Corpuscular Hemoglobin 26.4 pg (27.0-31.0); Mean Corpuscular Volume 84.1 fL (78.0-98.0); Mean Platelet Volume 8.3 fL (7.4-10.4); Platelet Count 291 thou/uL (130-400); RBC Distribution Width 15.1 % (11.5-14.5); Red Blood Cell (RBC) Count 5.03 mill/uL (4.20-5.40); White Blood Cell (WBC) Count 8.1 thou/uL (4.8-10.8)
[2022-07-01 13:31] LABS: ALT (SGPT) 13 U/L (8-55); AST (SGOT) 15 U/L (5-34); Albumin 3.7 g/dL (3.4-4.8); Alkaline Phosphatase 73 U/L (40-110); Anion Gap 14 mmol/L (10-20); BUN (Urea Nitrogen) 10 mg/dL (9.8-20.1); Bilirubin, Total 0.5 mg/dL (0.2-1.2); Calc. Creatinine Clearance 0 mL/min (70-130); Calcium 9.5 mg/dL (7.8-10.44); Carbon Dioxide 27 mmol/L (23-31); Chloride 100 mmol/L (98-107); Estimated GFR 83; Globulin 2.7 g/dL (2.4-3.5); Glucose 89 mg/dL (83-110); Potassium 4.1 mmol/L (3.5-5.1); Protein, Total 6.4 g/dL (5.8-8.1); Sodium 137 mmol/L (136-145)
[2022-07-01] MEDS ORDERED: Magnesium Citrate 300 ML BOT ONE (15:01)
== END 2022-07-01 15:24 | disposition home or self-care (01) ==
LOC: ERS 11:15
DX: K59.00 Constipation, unspecified (principal); R03.0 Elevated blood-pressure reading, without diagnosis of hypertension; K21.9 Gastro-esophageal reflux disease without esophagitis; E11.9 Type 2 diabetes mellitus without complications; I10 Essential (primary) hypertension
CPT/HCPCS: 74177; 80053; 85025; Q9967

== ENCOUNTER 2022-08-04 12:27 | Emergency (ER) | payer MEDICARE ==
[2022-08-04 13:25] LABS: #Basophils 0.1 thou/uL (0.0-0.2); #Eosinphils 0.2 thou/uL (0.0-0.7); #Lymphocytes 1.8 thou/uL (1.20-3.40); #Monocytes 0.8 thou/uL (0.11-0.59); #Neutrophils 7.4 thou/uL (1.40-6.50); %Basophils 0.6 % (0.0-1.0); %Eosinophils 1.5 % (0.0-10.0); %Lymphocytes 17.4 % (21.0-51.0); %Monocytes 7.8 % (0.0-10.0); %Neutrophils 72.6 % (42.0-75.0); Hemoglobin 12.5 g/dL (12.0-16.0); Mean Corpuscular HGB CONC 31.1 g/dL (32.0-36.0); Mean Corpuscular Hemoglobin 26.4 pg (27.0-31.0); Mean Corpuscular Volume 84.8 fL (78.0-98.0); Mean Platelet Volume 7.6 fL (7.4-10.4); Platelet Count 397 thou/uL (130-400); RBC Distribution Width 14.5 % (11.5-14.5); Red Blood Cell (RBC) Count 4.75 mill/uL (4.20-5.40); White Blood Cell (WBC) Count 10.2 thou/uL (4.8-10.8)
[2022-08-04 14:17] LABS: ALT (SGPT) 12 U/L (8-55); AST (SGOT) 12 U/L (5-34); Albumin 3.3 g/dL (3.4-4.8); Alkaline Phosphatase 62 U/L (40-110); Anion Gap 12 mmol/L (10-20); BUN (Urea Nitrogen) 14 mg/dL (9.8-20.1); Bilirubin, Total 0.4 mg/dL (0.2-1.2); Calc. Creatinine Clearance 0 mL/min (70-130); Calcium 9.5 mg/dL (7.8-10.44); Carbon Dioxide 23 mmol/L (23-31); Chloride 103 mmol/L (98-107); Estimated GFR 80; Globulin 2.7 g/dL (2.4-3.5); Glucose 85 mg/dL (83-110); Lipase 40 U/L (8-78); Potassium 4.3 mmol/L (3.5-5.1); Sodium 134 mmol/L (136-145)
== END 2022-08-04 14:36 | disposition home or self-care (01) ==
LOC: ERS 12:27
DX: K59.00 Constipation, unspecified (principal); E11.9 Type 2 diabetes mellitus without complications; I10 Essential (primary) hypertension
CPT/HCPCS: 74177; 80053; 83605; 83690; 85025; 87040; Q9967

== ENCOUNTER 2022-08-09 14:34 | Outpatient (CLI) | payer MEDICARE | END 2022-08-09 14:35 | disposition home or self-care (01) | LOC: BICRAD 14:34 | PROVIDERS: ATTEND Physician Assistant Medical | DX: K59.00 Constipation, unspecified (principal) | CPT/HCPCS: 74018 ==